=== PATIENT | female | born 1980 | race Caucasian/White ===

== ENCOUNTER 2017-03-25 10:30 | Emergency (ER) | payer SELFPAY ==
[~2017-03-25 10:30] MED LIST: BIOTIN1 M1 PO; FOLTX TABLET1 EACH PO; IRON18 MG PO; MELATONIN1 MG PO; MOTRIN-DPS400 MG PO; NEPHRO-VITE1 TAB PO; PERCOCET 5 DPS1 TAB PO; POTASSIUM99 MG PO; TUMERIC PO; ULTRAM DPS50 MG PO; ZOFRAN4 MG PO
== END 2017-03-25 13:10 | disposition home or self-care (01) ==
DX: K59.00 Constipation, unspecified (principal); N83.201 Unspecified ovarian cyst, right side; F17.210 Nicotine dependence, cigarettes, uncomplicated; Z90.49 Acquired absence of other specified parts of digestive tract; Z90.711 Acquired absence of uterus with remaining cervical stump; Z85.41 Personal history of malignant neoplasm of cervix uteri; Z79.899 Other long term (current) drug therapy